=== PATIENT | female | born 1985 | race Caucasian/White ===

== ENCOUNTER 2016-08-29 15:55 | Emergency (ER) | payer OTHER | END 2016-08-29 21:35 | disposition home or self-care (01) | LOC: ER 15:55 | DX: J40 Bronchitis, not specified as acute or chronic (principal); J32.9 Chronic sinusitis, unspecified; R05 Cough; R11.2 Nausea with vomiting, unspecified; R00.0 Tachycardia, unspecified; F17.210 Nicotine dependence, cigarettes, uncomplicated | CPT/HCPCS: 71020; 96372; 99283-25; J2930; J7040; J8597 ==